=== PATIENT | male | born 1970 | race Caucasian/White ===

== ENCOUNTER 2017-04-15 10:55 | Outpatient (CLI) | payer OTHER ==
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
== END 2017-04-15 10:56 | disposition home or self-care (01) ==
LOC: DI 10:55
DX: M47.892 Other spondylosis, cervical region (principal); M50.31 Other cervical disc degeneration, high cervical region
CPT/HCPCS: 72141

== ENCOUNTER 2022-02-15 11:37 | Emergency (ER) | payer OTHER ==
[2022-02-15] MEDS ORDERED: KETOROLAC 30 MG/ML VIAL IVP STA (12:01)
[2022-02-15] MEDS ORDERED: DEXAMETHASONE 10 MG/ML VIAL IVP STA (12:02)
[2022-02-15 12:04] LABS: BASOPHILS # (AUTO) 0.1 10^3/uL (0.0-0.1); BASOPHILS % (AUTO) 0.6 %; EOSINOPHILS # (AUTO) 0.3 10^3/uL (0.0-0.7); HCT - HEMATOCRIT 46.4 % (42.0-52.0); LYMPHOCYTES # (AUTO) 2.2 10^3/uL (1.5-3.5); LYMPHOCYTES % (AUTO) 27.8 %; MEAN CORPUSCULAR HEMOGLOBIN 30.9 pg (27.0-31.0); MEAN CORPUSCULAR HGB CONC 34.5 g/dL (32.0-36.0); MEAN CORPUSCULAR VOLUME 89.6 fL (80.0-94.0); MEAN PLATELET VOLUME 10.3 fL (7.4-11.4); MONOCYTES # (AUTO) 0.8 10^3/uL (0.0-1.0); MONOCYTES % (AUTO) 9.7 %; NEUTROPHILS # (AUTO) 4.5 10^3/uL (1.5-6.6); NEUTROPHILS % (AUTO) 57.5 %; PLT - PLATELET COUNT 229 10^3/uL (130-450); RED BLOOD COUNT 5.18 10^6/uL (4.70-6.10); WHITE BLOOD COUNT 7.9 x10^3/uL (4.8-10.8)
--- NOTE | 2022-02-15 12:04 | ED Physician Documentation ---
PD HPI CHEST PAIN - Stated complaint Stated Complaint: CHEST/SHOULDER PX - Chief complaint Chief Complaint: Cardiac - History obtained from History obtained from: Patient - History of Present Illness Timing - onset: Yesterday Timing - onset during: Rest Timing - duration: Hours (24) Timing - details: Gradual onset, Still present, Waxing and waning Quality: Pressure, Aching, Pain Location: Left chest Radiation: Back, Left upper extremity Improved by: Rest Worsened by: Movement, Palpation, Position Associated symptoms: No: Shortness of air, Diaphoresis, Nausea, Vomiting, Fee ling faint / dizzy, General Weakness, Palpitations, Cough Similar symptoms before: Has not had sx before Recently seen: Not recently seen - Additional information Additional information: Previously well 51-year-old male who does workout at the gym has been experiencing some pain in his left chest that radiates to his left scapula. He began experiencing this yesterday while he was sitting at home. He denies any shortness of breath he denies any diaphoresis or nausea associated with it. He does not feel lightheaded or dizzy. He does have some increased pain with movement of the left arm. He has pain to his upper back. He does recall later in the visit that he did help someone unload dog food at the [employer] the day prior to onset of symptoms. Review of Systems Constitutional: denies: Fever Eyes: denies: Decreased vision Ears: denies: Ear pain Nose: denies: Congestion Throat: denies: Sore throat Cardiac: reports: Chest pain / pressure. denies: Palpitations, Pedal edema, Calf pain Respiratory: denies: Dyspnea, Cough, Wheezing GI: denies: Abdominal Pain, Nausea, Vomiting : denies: Dysuria, Frequency Skin: denies: Rash Musculoskeletal: reports: Back pain. denies: Neck pain, Extremity pain Neurologic: denies: Generalized weakness, Focal weakness, Numbness PD PAST MEDICAL HISTORY - Allergies Allergies/Adverse Reactions: Allergies Allergy/AdvReac Type Severity Reaction Status Date / Time aspirin [From Norgesic] Allergy Hallucinati Verified 02/15/22 11:45 ons caffeine [From Norgesic] Allergy Hallucinati Verified 02/15/22 11:45 ons orphenadrine [From Norgesic] Allergy Hallucinati Verified 02/15/22 11:45 ons PD ED PE NORMAL - Vitals Vital signs reviewed: Yes (hypertensive) - General General: Alert and oriented X 3, No acute distress, Well developed/nourished - HEENT HEENT: Atraumatic, PERRL, EOMI - Neck Neck: Supple, no meningeal sign, No bony TTP, No adenopathy - Cardiac Cardiac: RRR, No murmur - Respiratory Respiratory: No respiratory distress, Clear bilaterally, Other (There is chest wall tenderness that reproduces the symptoms the patient is having.) - Abdomen Abdomen: Soft, Non tender - Back Back: No CVA TTP, No spinal TTP - Derm Derm: Normal color, Warm and dry, No rash - Extremities Extremities: No deformity, No edema - Neuro Neuro: Alert and oriented X 3, front desk administrator 2-12 intact, No motor deficit, No sensory deficit, Normal speech Eye Opening: Spontaneous Motor: Obeys Commands Verbal: Oriented GCS Score: 15 - Psych Psych: Normal mood, Normal affect Results - Vitals Vitals: Vital Signs - 24 hr 02/15/22 02/15/22 11:43 12:30 Temperature 36.0 C L Heart Rate 61 60 Respiratory 14 20 Rate Blood Pressure 149/91 H 125/84 H O2 Saturation 99 97 Oxygen O2 Source Room air - EKG (time done) 1148 Rate: Rate (enter#) (56) Rhythm: NSR Ischemia: Normal ST segments Compare to prior EKG: Old EKG unavailable Computer interpretation: Agree with computer - Labs Labs: Laboratory Tests 02/15/22 02/15/22 02/15/22 11:55 11:55 11:55 WBC 7.9 RBC 5.18 Hgb 16.0 Hct 46.4 MCV 89.6 MCH 30.9 MCHC 34.5 RDW 12.0 Plt Count 229 MPV 10.3 Neut # (Auto) 4.5 Lymph # (Auto) 2.2 Pitkin # (Auto) 0.8 Eos # (Auto) 0.3 Baso # (Auto) 0.1 Absolute Nucleated RBC 0.00 Nucleated RBC % 0.0 Sodium 135 Potassium 3.9 Chloride 102 Carbon Dioxide 26 Anion Gap 7.0 BUN 24 H Creatinine 0.7 Estimated GFR (MDRD) 118 Glucose 100 Calcium 8.8 Total Bilirubin 1.0 AST 23 ALT 32 Alkaline Phosphatase 60 Troponin I High Sens 5.3 Total Protein 7.0 Albumin 4.2 Globulin 2.8 Albumin/Globulin Ratio 1.5 Lipase 31 - Rads (name of study) chest Radiology: Prelim report reviewed (Impression: No acute cardiopulmonary pathology.), EMP read indepedently, See rad report PD MEDICAL DECISION MAKING - ED course Complexity details: reviewed old records, reviewed results, re-evaluated patient, considered differential, d/w patient ED course: 51-year-old male with left anterior chest wall pain after physical exertion appears to have costochondritis. The remainder of the work-up is otherwise unremarkable his electrocardiogram is normal appearing is normal troponin and a normal-appearing chest x-ray. Here in the emergency department he is administered dexamethasone and Toradol with relief of his pain. Departure - Departure Disposition: 01 Home, Self Care Clinical Impression: Acute costochondritis Condition: Stable Instructions: ED Chest Pain Costochondritis Follow-Up: JOSE ALFREDO MAIER DO [Primary Care Provider] - Comments: Poncho today it looks like you have costochondritis or inflammation of the muscles of the chest wall and this is likely due to excessive use of your muscles from loading dog food. The expectation is resolution of symptoms in 2 to 5 days. Anti-inflammatories like ibuprofen worked well for this and the recommendation is to take this with food if you take them. Discharge Date/Time: 02/15/22 13:07
--- NOTE | 2022-02-15 12:15 | XRAY Report ---
PROCEDURE: Chest 1 View X-Ray INDICATIONS: Chest pain TECHNIQUE: One view of the chest was acquired. COMPARISON: None FINDINGS: Surgical changes and devices: None. Lungs and pleura: No pleural effusions or pneumothorax. Lungs are clear. Mediastinum: Mediastinal contours appear normal. Heart size is normal. Bones and chest wall: No suspicious bony lesions. Overlying soft tissues appear unremarkable. IMPRESSION: No acute cardiopulmonary pathology. Reviewed by: Ld Moreno MD on 02/15/2022 12:14 PM PDT Approved by: Ld Moreno MD on 02/15/2022 12:14 PM PDT Station ID: [id number]
[2022-02-15 12:22] LABS: ALBUMIN 4.2 g/dL (3.2-5.5); ALBUMIN/GLOBULIN RATIO 1.5 (1.0-2.2); CALCIUM 8.8 mg/dL (8.5-10.3); CREATININE 0.7 mg/dL (0.6-1.2); POTASSIUM 3.9 mmol/L (3.5-5.0)
[2022-02-15 12:54] VITALS: BP 125/84
== END 2022-02-15 13:07 | disposition home or self-care (01) ==
LOC: ED 11:37
DX: M94.0 Chondrocostal junction syndrome [Tietze] (principal)
CPT/HCPCS: 36415; 80053; 83690; 84484; 85025; 93005; 96374; 96375; 99284

== ENCOUNTER 2022-08-29 17:32 | Emergency (ER) | payer OTHER ==
[2022-08-29 17:40] VITALS: BP 162/79
[2022-08-29] MEDS ORDERED: CYCLOBENZAPRINE 10 MG TABLET PO STA (18:45)
--- NOTE | 2022-08-29 18:46 | ED Physician Documentation ---
PD HPI LOWER EXT INJURY - Stated complaint Stated Complaint: R KNEE/LEG PX - Chief complaint Chief Complaint: Ext Problem - History obtained from History obtained from: Patient - Additional information Additional information: 51-year-old gentleman with history of right-sided Allison's cyst and IT band syndrome presents without 2 to 3 weeks of increased right knee and leg pain. Its in the anterior right knee and also radiates up the lateral thigh. Its worse with walking. There was no specific injury. Naproxen has not been effective. He is an avid walker and walks quite a bit but no other sports or high impact activities. Review of Systems Constitutional: reports: Reviewed and negative Throat: reports: Reviewed and negative Cardiac: reports: Reviewed and negative Respiratory: reports: Reviewed and negative PD PAST MEDICAL HISTORY - Present Medications Home Medications: Ambulatory Orders Medication Instructions Recorded Confirmed Cyclobenzaprine [Flexeril] 10 mg PO TID PRN #20 tablet 08/29/22 - Allergies Allergies/Adverse Reactions: Allergies Allergy/AdvReac Type Severity Reaction Status Date / Time aspirin [From Norgesic] Allergy Hallucinati Verified 02/15/22 11:45 ons caffeine [From Norgesic] Allergy Hallucinati Verified 02/15/22 11:45 ons orphenadrine [From Norgesic] Allergy Hallucinati Verified 02/15/22 11:45 ons - Social History Does the pt smoke?: No Smoking Status: Never smoker Does the pt drink ETOH?: Yes Does the pt have substance abuse?: No - POLST Patient has POLST: No PD ED PE NORMAL - Vitals Vital signs reviewed: Yes - General General: Alert and oriented X 3, No acute distress - Back Back: No CVA TTP - Derm Derm: Normal color, Warm and dry - Extremities Extremities: Other (The right knee is diffusely tender anteriorly with a small effusion but no warmth or redness. No limited range of motion. He is tight over the right IT band and is not able to tolerate IT band stretches.) - Neuro Neuro: Alert and oriented X 3, Normal speech Results - Vitals Vitals: Vital Signs - 24 hr 08/29/22 17:35 Temperature 36.8 C Heart Rate 57 L Respiratory 18 Rate Blood Pressure 162/79 H O2 Saturation 99 Oxygen O2 Source Room air - Rads (name of study) 4 view right knee x-ray demonstrates an effusion without other findings. Radiology: EMP read contemporaneously PD MEDICAL DECISION MAKING - ED course ED course: 51-year-old gentleman presents with knee pain which seems like a combination of primary knee pain as well as IT band syndrome on the right. He was given stretches for the IT band syndrome and started on a muscle relaxer, he he is already on an anti-inflammatory. Advised Ortho follow-up. Departure - Departure Disposition: Home, Self Care Clinical Impression: Effusion, right knee Condition: Good Record reviewed to determine appropriate education?: Yes Instructions: ED Effusion Knee Prescriptions: Cyclobenzaprine [Flexeril] 10 mg PO TID PRN #20 tablet PRN Reason: Spasms Comments: As discussed, I think your pain is a combination of what ever is causing the fluid in the right knee as well as IT band syndrome. I would do the IT band stretches as shown but I am also prescribing a knee immobilizer and a muscle relaxer which I sent electronically to [facility] in [place]. Do not drink or drive without. You can continue naproxen with that. Follow-up with your doctor on Friday as scheduled, consider orthopedic referral. Discharge Date/Time: 08/29/22 19:50
--- NOTE | 2022-08-29 19:21 | XRAY Report ---
PROCEDURE: Knee 4 View RT INDICATIONS: knee pain TECHNIQUE: 4 views of the right knee(s) were acquired. COMPARISON: None. FINDINGS: Bones: No fractures or dislocations. No suspicious bony lesions. Soft tissues: Moderate sized knee joint effusion No suspicious soft tissue calcifications. IMPRESSION: Moderate sized knee joint effusion without fracture. Reviewed by: Dread Morgan MD on 08/29/2022 7:20 PM PDT Approved by: Dread Morgan MD on 08/29/2022 7:20 PM PDT Station ID: [id number]
== END 2022-08-29 19:50 | disposition home or self-care (01) ==
LOC: ED 17:32
DX: M25.461 Effusion, right knee (principal); M76.31 Iliotibial band syndrome, right leg
CPT/HCPCS: 73564; 99283; A9270

== ENCOUNTER 2023-09-08 08:00 | Outpatient (CLI) | payer OTHER ==
--- NOTE | 2023-09-08 12:01 | XRAY Report ---
PROCEDURE: Knee 4 View RT INDICATIONS: RIGHT KNEE PAIN TECHNIQUE: 4 views of the bilateral and right knee(s) were acquired. COMPARISON: 08/29/2022 FINDINGS: Bones: No fractures or dislocations. Tricompartmental osteoarthritic changes with marginal spurring and moderate medial joint space narrowing. No suspicious bony lesions. Soft tissues: Small knee joint effusion. No suspicious soft tissue calcifications or masses. IMPRESSION: Tricompartment osteoarthritic changes with moderate medial joint space narrowing. Reviewed by: Paul Sauceda MD on 09/08/2023 11:59 AM PDT Approved by: Paul Sauceda MD on 09/08/2023 11:59 AM PDT Station ID: [id number]
== END 2023-09-08 23:59 | disposition home or self-care (01) ==
LOC: DI.WOS 08:00
PROVIDERS: ATTEND Orthopaedic Surgery
DX: M17.11 Unilateral primary osteoarthritis, right knee (principal)

== ENCOUNTER 2023-11-27 10:17 | Outpatient (CLI) | payer OTHER ==
--- NOTE | 2023-11-27 11:19 | Sleep Patient Instructions ---
Sleep Center Visit Summary - Patient Visit Information Reason for Visit: Initial consultation - Patient Instructions Instructions Attached: Apnea Sleep Mouthpieces Additional Instructions: You will continue with CPAP therapy with pressure set at 10-12 cmH2O. A prescription for an oral appliance was written and given to you at this visit with a list of dentists. We encourage you to continue to try to lose weight. Please follow up with the sleep care office one month after obtaining oral appliance. - Clinic Information Contact: [facility] [address] [place] [phone] [email or web address] T: [phone]
--- NOTE | 2023-11-27 11:25 | SLEEP CARE CONSULTATION ---
Information from patient questionnaire entered by Rah Leach. I have reviewed and concur with the information entered by Rah Leach. This document represents the service I personally performed and the decisions made by me, Yesenia Wong ARNP. History of Present Illness Service Date and Time: 11/27/2023 1017 Reason for Visit: New patient, Previously diagnosed sleep apnea, sleep apnea on CPAP therapy Chief Complaint: reports: Unrefreshed sleep, Snoring, Observed pauses in breathing, Fatigue, Frequent awakenings at night Date of Onset: 2012 Usual bedtime: Inconsistent, anywhere from 9 PM to midnight Time it takes to fall asleep: Sometimes immediate, sometimes hours Snores at night: Yes Observed to quit breathing while asleep: Yes Sleeps alone due to snoring: Yes Number of times waking at night: 3 - 4 Reasons for waking at night: reports: Snoring, Pain, Bathroom, Other (Noise) Toss, Turn, or Twitch while sleeping: Yes Recalls having dreams: Yes Usually gets out of bed at: Between 4:30 - 5 AM Feels refreshed in the morning: Yes Morning headache: No Sleepy or fatigued during the day: Yes Ever fallen asleep while driving: No Takes day naps: Yes Dreams during day naps: No Prior sleep studies: Yes Year and Where: 2012 [place] and 2018 [facility]) Type of Sleep Study: Polysomnography Additional HPI information: KESHAV TRUJILLO was previously diagnosed to have moderate, AHI 22.2, obstructive sleep apnea-hypopnea syndrome in sleep study reviewed and dated 01/18/2019 done at [facility] and comes in today to establish care for CPAP therapy. - Parasomnia Symptoms Ever been unable to move upon waking from sleep: No Walks in sleep: No Talks in sleep: Yes Ever acted out dreams in sleep: Yes Ever felt weak in the knees when startled or emotional: No Bothered by creepy, crawly, restless sensations in legs: No Problems with memory or concentration: Yes CPAP Compliance Data - Data Reviewed with Patient Average duration of nightly device use: 3 hours 39 minutes Compliance rate %: 40 (30 days used; 10% in last 6 months) Current pressure setting (cmH2O): 12-13 Average residual AHI: 2.8 Average large leak: 7 mins 8 secs Compliance data discussion: He has a Dreamstation 2. He is using a nasal cushion mask, AirFit F30, small cushion. He used to get supplies from [employer] but is not currently getting supplies. Subjective Missed days of use due to: reports: other (not feeling he is getting prolonged sleep) Patient concerns: reports: dry mouth, nose, throat. denies: aerophagia, mask discomfort, air blowing in eyes, mask leak noise, condensation in mask/hose, nasal congestion, epistaxis Observed to snore while using device: No Current pressure setting perceived as: comfortable On therapy, patient: reports: sleeping better (minimal improvement with CPAP), more rested overall. denies: drowsiness while driving Initial [place] Sleepiness Scale score: 15 (in 2023) Past Medical History Past Medical History: reports: Arthritis, Anxiety, Impotence (erectile dysfunction), Depression, Mood disorder (PTSD), Attention deficit (ADHD), Other (Allsion's cyst Right knee) Social History The patient's occupation is in [employer]. Patient is and lives in [place]. Have you smoked in the past 12 months: No Alcohol use: Yes Alcohol amount and frequency: 1-2 drinks, once every 6-12 months Caffeine use: Yes Caffeine amount and frequency: 1-2 drinks daily Family History Family history of sleep disordered breathing: No Allergies and Home Medications Known drug allergies: Yes (as listed) Drug allergies reviewed: Yes Home medication list reviewed: Yes Allergy and home medication list: Allergies aspirin [From Norgesic] Allergy (Verified 11/26/23 10:29) Hallucinations caffeine [From Norgesic] Allergy (Verified 11/26/23 10:29) Hallucinations orphenadrine [From Norgesic] Allergy (Verified 11/26/23 10:29) Hallucinations Medications: Guanfesine Flonoase Nereida Cialis Vitamin D and K Magnesium 5HTP Review of Systems Weight gain over past 5 years: 20 Weight loss over past 5 years: 5-10 Cardiovascular: denies: high blood pressure Gastrointestinal: reports: heartburn Urinary: reports: impotence Neurological: denies: headaches Psychiatric: reports: Attention Deficit Hyperactivity, anxiety, depression, other (PTSD) Ear/Nose/Throat: reports: nasal congestion, sinus problems, wisdom teeth removed, other (Sore throat). denies: tonsillectomy Endocrine: reports: sluggishness (/tired), excessive thirst Musculoskeletal: reports: joint pain (/stiffness), neck pain, back pain, joint swelling, muscle pain or cramping Immunologic: reports: sneezing (/runny nose) Physical Exam Vital signs obtained and entered by: Yesenia Garcia NP Blood Pressure: 140/86 Cuff size: regular (right arm) Heart Rate: 60 O2 Saturation: 97 Height: 5 ft 10 in Weight: 250 lb Body Mass Index: 35.9 BMI Classification: Obese Heart: regular rate and rhythm Lungs: clear bilaterally Impression and Plan 1. Obstructive Sleep Apnea-Hypopnea Syndrome, moderate, with fair treatment compliance and good apnea control. On CPAP therapy, the patient has better sleep quality and is more rested overall. Patient states he averages around 4 hours of sleep nightly. He has been trying to use his CPAP more to improve his sleep and has noticed a slight difference but only averages 3 hours and 39 minutes overall. He would like to try something else that may control his sleep apnea. He does have moderate sleep apnea which may be controlled well enough with an oral appliance. After discussion he decided he would like to be referred for an oral appliance. He will continue with the CPAP until he has that appliance to use. A month follow up will be made to see if appliance has reduced symptoms. If so, another polysomnography will be ordered with use of the oral appliance to check efficacy in reducing apnea. He voiced understanding and agreement with plan of care. He does not want to set up for CPAP supplies yet. Patient's apnea severity and rationale for treatment to reduce apnea, improve sleep quality and reduce cardiovascular and cerebrovascular events was reviewed. I also reviewed the benefit of consistent device use of CPAP for depression, anxiety and attention deficit. 2. Obesity, unspecified. Currently patients BMI is 35.9. Obesity increases the risk of apnea, CPAP pressure requirements and overall health risks especially cardiovascular and diabetes. Thus patient is advised to lose weight. * Continue auto CPAP pressure at 10-12 cmH2O * Oral appliance * Notify me if snoring with mask or feeling that the pressure is too much or too little * Attempt to lose weight * Call this office if any problems using CPAP * Return for follow up one month after obtaining new oral appliance, or sooner if concerns arise Counseling Topics: Weight loss health impact Prescriptions: Other (Oral appliance) Follow up with Sleep Care in: other (one month after obtaining new oral device) Visit Type: In Office Time Spent with Patient (minutes): 38 Provider Statement: I spent 100% of the Face to Face Visit with the patient with greater than 50% spent counseling the patient and coordination of care.
[2023-11-27 11:31] VITALS: BP 140/86; O2SAT 97
== END 2023-11-27 10:18 | disposition home or self-care (01) ==
LOC: SC 10:17
PROVIDERS: ATTEND Nurse Practitioner Family
DX: G47.33 Obstructive sleep apnea (adult) (pediatric) (principal); E66.9 Obesity, unspecified; Z68.35 Body mass index [BMI] 35.0-35.9, adult
CPT/HCPCS: 99203; 99212

== ENCOUNTER 2024-06-02 08:29 | Outpatient (CLI) | payer OTHER ==
--- NOTE | 2024-06-02 09:10 | Sleep Patient Instructions ---
Sleep Center Visit Summary - Patient Visit Information Reason for Visit: 6-month follow-up - Patient Instructions Additional Instructions: You were here for follow up of CPAP therapy and oral appliance followup. You may continue on CPAP therapy with pressure at 10-12 cmH2O. You may continue with the [place] since it seems to have improved your sleep while we try to get an oral appliance. A new referral for this has been given to you today. You should follow up with sleep care in 3 months. You may contact us sooner for any questions or concerns. - Clinic Information Contact: [facility] [address] [place] [address] [email or web address] T: [phone]
--- NOTE | 2024-06-02 09:15 | SLEEP CARE CONSULTATION ---
Information from patient questionnaire entered by Paulette Keane. I have reviewed and concur with the information entered by Paulette Keane. This document represents the service I personally performed and the decisions made by me, Yesenia Wong ARNP. History of Present Illness Service Date and Time: 06/02/2024 0829 Previous diagnosis: Moderate, Obstructive Sleep Apnea-Hypopnea Syndrome AHI: 22.2 (01/18/2019) Reason for follow up: six month (F/U) Equipment type: Dental Appliance Prior sleep studies: Yes Year and Where: 2012 [facility] and 2018 [place] ([place]) Type of Sleep Study: Polysomnography HPI additional information: KESHAV TRUJILLO was diagnosed to have moderate, AHI 22.2, obstructive sleep apnea-hypopnea syndrome and returned today for CPAP therapy six month follow-up. At his last visit, an order for an oral appliance was written and he comes back to office for further evaluation. He was unable to get an oral device covered by insurance before he had to travel to [facility]. He found a snoring device called Ripsnore that he says molded to his mouth and he has been using it. He says his snoring is better controlled and he is sleeping better. He has not been using his CPAP. Sleep Study - Results Type of Sleep Study: Polysomnography Prior sleep studies: Yes Year and Where: 2012 [facility] and 2018 [place] ([place]) CPAP Compliance Data - Data Reviewed with Patient Current pressure setting (cmH2O): 10-12 Compliance data discussion: He has been using the Ripsnore device nightly. Subjective Initial [place] Sleepiness Scale score: 15 (in 2023) Current [place] Sleepiness Scale score: 7 (06/02/24) Allergies and Home Medications Known drug allergies: Yes (as listed) Drug allergies reviewed: Yes Home medication list reviewed: Yes (no changes) Allergy and home medication list: Allergies aspirin [From [facility]] Allergy (Verified 05/31/24 10:21) Hallucinations caffeine [From [facility]] Allergy (Verified 05/31/24 10:21) Hallucinations orphenadrine [From [facility]] Allergy (Verified 05/31/24 10:21) Hallucinations Review of Systems Review of systems same as previous: No ([facility]) Physical Exam Vital signs obtained and entered by: PAULETTE Boyce MA Blood Pressure: 148/86 (LEFT ARM) Cuff size: regular Heart Rate: 83 O2 Saturation: 98 Height: 5 ft 10 in Weight: 232 lb 3.2 oz Body Mass Index: 33.3 BMI Classification: Obese Impression and Plan 1. Obstructive Sleep Apnea-Hypopnea Syndrome, moderate. Using the oral device Ripsnore, the patient has better sleep quality and is more rested overall. He has not been using his CPAP. He says he could not get coverage for an oral appliance. I am going to send him to [facility] to see if he can help get him in an oral MAD for his sleep apnea. In the meantime, since he has had significant improvement of his sleep and snoring he may continue to use the Ripsnore until able to get a MAD made for him. We will follow up with him in 3 months. Patient's apnea severity and rationale for treatment to reduce apnea, improve sleep quality and reduce cardiovascular and cerebrovascular events was reviewed. I also reviewed the benefit of consistent device use of CPAP for depression/anxiety, attention deficit and PTSD. 2. Obesity, unspecified. Currently patients BMI is 33.3. Obesity increases the risk of apnea, CPAP pressure requirements and overall health risks especially cardiovascular and diabetes. Thus patient is advised to lose weight. * Continue auto CPAP pressure at 10-12 cmH2O or Ripsnore as desired until able to use the MAD * Oral Appliance- referral to get device made * Notify me if snoring with mask or feeling that the pressure is too much or too little * Attempt to lose weight * Call this office if any problems * Return for follow up in 3 months, or sooner if concerns arise Counseling Topics: Weight loss health impact Prescriptions: Other (MAD) Follow up with Sleep Care in: 3 months Visit Type: In Office Time Spent with Patient (minutes): 32 Provider Statement: I spent 100% of the Face to Face Visit with the patient with greater than 50% spent counseling the patient and coordination of care.
[2024-06-02 09:23] VITALS: BP 148/86; O2SAT 98
== END 2024-06-02 08:30 | disposition home or self-care (01) ==
LOC: SC 08:29
PROVIDERS: ATTEND Nurse Practitioner Family
DX: G47.33 Obstructive sleep apnea (adult) (pediatric) (principal); E66.9 Obesity, unspecified; Z68.33 Body mass index [BMI] 33.0-33.9, adult
CPT/HCPCS: 99212; 99214